=== PATIENT | female | born 1960 | race Caucasian/White ===

== ENCOUNTER 2020-08-07 16:47 | Outpatient (CLI) | payer OTHER, SELFPAY | END 2020-08-07 16:48 | disposition home or self-care (01) | LOC: ANHCOVIDVC 16:47 | PROVIDERS: PCP Family Medicine | DX: Z23 Encounter for immunization (principal) | CPT/HCPCS: 0001A; 91300 ==

== ENCOUNTER 2020-08-28 16:55 | Outpatient (CLI) | payer OTHER, SELFPAY | END 2020-08-28 16:56 | disposition home or self-care (01) | LOC: ANHCOVIDVC 16:55 | PROVIDERS: PCP Family Medicine | DX: Z23 Encounter for immunization (principal) | CPT/HCPCS: 0002A; 91300 ==

== ENCOUNTER → 2021-06-16 07:49 | Outpatient (CLI) | payer BC, SELFPAY ==
--- NOTE | ~2021-06-16 | US_ITS ---
EXAMINATION: US pelvic complete w TV DATE: 06/16/2021 08:23 INDICATION: Noninflammatory disorders of the ovary Comparison:No prior studies for comparison. TECHNIQUE: Multiple transabdominal and endovaginal sonographic images of the pelvis performed. FINDINGS: The uterus measures 6.1 x 3 x 3.6 cm. There is a small uterine fibroid at the fundus measur ing 1.8 x 1.7 x 1.5 cm The endometrial complex measures 4 mm. The ovaries are not visualized. There is no free fluid in the pelvis. There are no abnormal masses seen on either side. IMPRESSION: 1. Small uterine fibroid measuring 1.8 cm maximum dimension. Reviewed, dictated and finalized at location B. PMENT PROCESSOR
== END ==
PROVIDERS: PCP Family Medicine; Visit Provider Family Medicine
DX: N83.8 Other noninflammatory disorders of ovary, fallopian tube and broad ligament (principal); D25.9 Leiomyoma of uterus, unspecified
CPT/HCPCS: 76830; 76856

== ENCOUNTER → 2021-10-15 02:22 | Outpatient (CLI) | payer BC, SELFPAY ==
[2021-10-15 12:22] LABS: SARS-CoV-2 RNA PCR Positive
== END ==
PROVIDERS: PCP Family Medicine; Visit Provider Family Medicine
DX: U07.1 COVID-19 (principal)
CPT/HCPCS: C9803; U0003; U0005

== ENCOUNTER 2021-11-29 13:20 | Emergency (ER) | payer BC, SELFPAY ==
[2021-11-29] VITALS (33 sets, daily range): BP systolic 130–174; BP diastolic 67–98; PULSE 71–110; RESP 12–25; TEMP 36.7; O2SAT 95–100
--- NOTE | ~2021-11-29 | XR_ITS ---
EXAMINATION: XR chest 2V Exam Date/Time: 11/29/2021 14:30 CDT HISTORY: cp, syncope, palpitations, HTN Comparison: 05/23/2018. RESULT: Lines, tubes, and devices: None. Lungs and pleura: Clear. Cardiomediastinal silhouette: Stable. Other: No acute osseous or upper abdominal finding. IMPRESSION: No acute cardiopulmonary process. Reviewed, dictated and finalized at location K.
--- NOTE | 2021-11-29 13:21 | ECG_ITS ---
Measurements Intervals [place] Rate: 108 P: 52 [place]: 163 QRS: 42 QRSD: 77 T: 33 QT: 317 QTc: 426 Interpretive Statements SINUS TACHYCARDIA WITH OCCASIONAL SUPRAVENTRICULAR PREMATURE COMPLEXES SEPTAL MYOCARDIAL INFARCTION , PROBABLY OLD [40+ ms Q WAVE IN V1/V2] COMPARED TO ECG 05/23/2018 16:42:53 HEART RATE IS INCREASED , NO OTHER CHANGE Electronically Signed On 11-29-2021 14:39:22 CDT by Ang Nathan M.D.
[2021-11-29 13:37] LABS: Basophils Absolute Auto 0.1 K/mm3 (0.0-0.1); Basophils Percent Auto 0.5 % (0.2-1.2); Eosinophils Absolute Auto 0.1 K/mm3 (0-0.3); Eosinophils Percent Auto 1.4 % (0-4.4); Hematocrit 43.3 % (37.0-47.0); Hemoglobin 14.1 g/dL (12.0-15.0); Immature Granulocyte Absolute 0.03 K/mm3 (0.00-0.031); Immature Granulocyte Percent A 0.3 % (0-0.5); Lymphocytes Absolute Auto 3.95 K/mm3 (0.9-3.2); Lymphocytes Percent Auto 43.3 % (18.3-44.2); Mean Corpuscular HGB Conc 32.6 g/dl (32-36); Mean Corpuscular Hemoglobin 28.4 pg (26-34); Mean Corpuscular Volume 87.1 fl (80-100); Mean Platelet Volume 9.1 fl (7.4-10.4); Monocytes Absolute Auto 0.6 K/mm3 (0.1-0.6); Monocytes Percent Auto 6.4 % (2.6-8.5); Neutrophils Absolute Auto 4.4 K/mm3 (1.3-6.7); Neutrophils Percent Auto 48.1 % (45.5-73.1); Platelet Count Result 315 k/mm3 (150-375); Red Blood Count 4.97 M/mm3 (4.2-5.4); White Blood Count 9.1 K/mm3 (4.5-10.0)
[2021-11-29 13:47] LABS: Alanine Aminotransferase 19 U/L (6-35); Alkaline Phosphatase 120 U/L (38-126); Anion Gap 12 mmol/L (8-16); Aspartate Amino Transferase 26 U/L (14-36); Bilirubin,Total 0.4 mg/dL (0.2-1.3); Blood Urea Nitrogen 13 mg/dL (7-17); Calcium 9.2 mg/dL (8.4-10.2); Carbon Dioxide 25 mmol/L (22-30); Chloride 104 mmol/L (98-107); Estimated Glomerular Filt Rate > 60; Glucose 134 mg/dL (65-110); Lipase 88 U/L (23-300); Sodium 141 mmol/L (137-145)
[2021-11-29 13:55] LABS: INR 1.1
[2021-11-29 13:56] LABS: Partial Thromboplastin Time 33.2 SECONDS (22.3-36.8)
[2021-11-29 13:58] LABS: Troponin I < 0.012 ng/mL (0.000-0.034)
--- NOTE | 2021-11-29 15:02 | ED.CHESTPAIN ---
HPI - Chest Pain General Chief Complaint: Chest Pain Stated Complaint: syncope? Time Seen by Provider: 11/29/21 14:49 History of Present Illness HPI narrative: 60 year old female here for evaluation of lightheadedness earlier today. Patient states she was standing while at work when she started to feel lightheaded, feel nauseous, and everything started to go black . She did not pass out or lose consciousness. States that she sat down while she was at work and felt improved. She developed some left arm pain shortly afterwards, that feels like a squeezing in her bicep muscle. She has not had a sensation like this in the past. Denies any chest pain, shortness of breath, fevers, chills, abdominal pain, dysuria, urgency or frequency. Had abnormal stress test in may 2018 followed by normal heart cath. Related Data Allergies Allergy/AdvReac Type Severity Reaction Status Date / Time ibuprofen Allergy Unknown Skin Verified 08/27/21 15:54 Reaction red dye Allergy Unknown Unknown Verified 08/27/21 15:54 Review of Systems Review of Systems: Gen: Reports lightheadedness, resolved. Eyes: Denies eye pain or visual change ENT: Denies congestion Respiratory: Denies shortness of breath or cough CV: Denies chest pain or palpitations GI: Denies abdominal pain nausea, emesis or diarrhea denies burning, urgency, frequency or hematuria Musculoskeletal: Reports left arm squeezing sensation. Neuro: Denies numbness, tingling, weakness or focal weakness Skin: Denies rash Except as documented, all other systems reviewed and negative PMFSH Family History Family History Father No problems noted. Mother Breast cancer Sibling Cerebrovascular accident Heart attack Sibling Heart attack Grandparent Breast cancer Grandparent Heart attack Grandparent Heart attack Social History Social History Smoking status: Never smoker Alcohol intake: current Exam Narrative: APPEARANCE: Well appearing, no pain in distress, well-nourished. Head: Normocephalic and atraumatic. EYES: PERRLA/EOMI, conjunctivae clear NOSE: No nasal drainage EARS: External ear normal in appearance THROAT: Oropharynx is clear. Mucous membranes are moist. NECK: No carotid bruits. Supple. No adenopathy, no masses. RESPIRATORY: Airway patent, respirations nonlabored. Clear to auscultation bilaterally, no rales, rhonchi, wheezing. CARDIOVASCULAR: Tachycardic. Regular rhythm without murmurs, rubs, or gallops. ABDOMINAL: Normoactive bowel sounds. Soft, nontender, nondistended. No rebound tenderness or guarding. MUSCULOSKELETAL: Extremities are warm and well-perfused. Moves all extremities well. No edema. No muscular or bony tenderness to palpation of LUE. FROM in BUE without pain. NEURO: Normal speech. No focal neurologic deficits. SKIN: Skin is warm and dry. No rashes. PSYCHIATRIC: Normal affect/mood. Course Vital Signs Vital signs: Vital Signs Temperature 98.1 F 11/29/21 13:30 Pulse Rate 110 H 11/29/21 13:30 Respiratory Rate 14 11/29/21 13:30 Blood Pressure 174/98 H 11/29/21 13:30 Pulse Oximetry 100 11/29/21 13:30 Oxygen Delivery Room Air 11/29/21 13:30 Temperature 98.1 F 11/29/21 13:30 Pulse Rate 73 11/29/21 17:55 Respiratory Rate 20 11/29/21 17:55 Blood Pressure 137/67 11/29/21 17:55 Pulse Oximetry 99 11/29/21 17:55 Oxygen Delivery Room Air 11/29/21 13:30 MDM - Chest Pain MDM Narrative Medical decision making narrative: 60 year old female here for evaluation of presyncopal episode earlier today followed by left bicep pain. Here, she was initially tachycardic/hypertensive, which resolved throughout ED stay, vital signs otherwise normal. Heart and lungs clear to auscultation, no cranial nerve abnormalities on exam, no carotid bruits. Orthostats negative. EKG is non-ische
--- NOTE | 2021-11-29 15:11 | PC.NURSE ---
called main lab @ [id number] to add on d [facility] [id number]
[2021-11-29 15:53] LABS: D Dimer 0.39 ug/mL (<0.48)
[2021-11-29 17:11] LABS: Troponin I < 0.012 ng/mL (0.000-0.034)
== END 2021-11-29 17:56 | disposition home or self-care (01) ==
PROVIDERS: Physician Assistant; Emergency Provider Emergency Medicine; PCP Family Medicine
DX: R55 Syncope and collapse (principal); R00.0 Tachycardia, unspecified; R94.31 Abnormal electrocardiogram [ECG] [EKG]
CPT/HCPCS: 36415; 71046; 80053; 83690; 84484; 85025; 85380; 85610; 85730; 93005; 99284

== ENCOUNTER 2022-02-14 11:36 | Outpatient (CLI) | payer BC, SELFPAY | END 2022-02-14 11:37 | disposition home or self-care (01) | LOC: ANHGOSHLAB 11:38 | PROVIDERS: PCP Family Medicine; Visit Provider Family Medicine | DX: R00.0 Tachycardia, unspecified (principal) | CPT/HCPCS: 36415; 84443 ==

== ENCOUNTER 2022-03-07 09:50 | Emergency (ER) | payer BC, SELFPAY ==
--- NOTE | ~2022-03-07 | XR_ITS ---
EXAMINATION: XR chest 2V DATE: 03/07/2022 10:30 INDICATION: Chest pain. Left toe pressure and shooting pain at the left arm. TECHNIQUE: PA and lateral views of the chest were obtained. COMPARISON: Chest radiograph dated 11/29/2021 FINDINGS: The lungs remain clear with no focal airspace opacities, pulmonary edema, pleural effusion or pneumot horax. The cardiomediastinal silhouette is normal. Mild upper thoracic levocurvature. Moderate thorac ic spondylosis. IMPRESSION: 1. No acute cardiopulmonary disease. Reviewed, dictated and finalized at location B. E MANAGER
--- NOTE | 2022-03-07 09:52 | ECG_ITS ---
Measurements Intervals [place] Rate: 80 P: 12 SD: 166 QRS: 48 QRSD: 69 T: 64 QT: 385 QTc: 446 Interpretive Statements SINUS RHYTHM VENTRICULAR PREMATURE COMPLEX CANNOT RULE OUT SEPTAL INFARCT, AGE INDETERMINATE BORDERLINE ST ABNORMALITY- DIFFUSE LEADS BASELINE ARTIFACT- I, III, AVL ABNORMAL ECG COMPARED TO ECG 11/29/2021 13:23:17 SINUS RHYTHM NOW PRESENT Electronically Signed On 03-07-2022 10:16:57 AIR BATTLE MANAGER by Lonnie Gutierrez D.O.
[2022-03-07 10:06] VITALS: BP 154/76; PULSE 73; RESP 18; TEMP 36.6; O2SAT 100
[2022-03-07 10:07] LABS: Basophils Absolute Auto 0.1 K/mm3 (0.0-0.1); Basophils Percent Auto 0.7 % (0.2-1.2); Eosinophils Absolute Auto 0.1 K/mm3 (0-0.3); Eosinophils Percent Auto 1.2 % (0-4.4); Hematocrit 43.4 % (37.0-47.0); Hemoglobin 14.5 g/dL (12.0-15.0); Immature Granulocyte Absolute 0.04 K/mm3 (0.00-0.031); Immature Granulocyte Percent A 0.5 % (0-0.5); Lymphocytes Absolute Auto 3.66 K/mm3 (0.9-3.2); Lymphocytes Percent Auto 42.2 % (18.3-44.2); Mean Corpuscular HGB Conc 33.4 g/dl (32-36); Mean Corpuscular Hemoglobin 28.9 pg (26-34); Mean Corpuscular Volume 86.6 fl (80-100); Mean Platelet Volume 9.3 fl (7.4-10.4); Monocytes Absolute Auto 0.7 K/mm3 (0.1-0.6); Monocytes Percent Auto 8.2 % (2.6-8.5); Neutrophils Absolute Auto 4.1 K/mm3 (1.3-6.7); Neutrophils Percent Auto 47.2 % (45.5-73.1); Platelet Count Result 283 k/mm3 (150-375); Red Blood Count 5.01 M/mm3 (4.2-5.4); Red Cell Distribution Width 12.6 % (11.5-14.5); White Blood Count 8.7 K/mm3 (4.5-10.0)
[2022-03-07 10:17] LABS: INR 1.1
[2022-03-07 10:19] LABS: Alanine Aminotransferase 18 U/L (6-35); Albumin Level 4.7 g/dL (3.5-5.1); Alkaline Phosphatase 114 U/L (38-126); Anion Gap 14 mmol/L (8-16); Aspartate Amino Transferase 23 U/L (14-36); Bilirubin,Total 0.6 mg/dL (0.2-1.3); Blood Urea Nitrogen 15 mg/dL (7-17); Calcium 9.1 mg/dL (8.4-10.2); Carbon Dioxide 25 mmol/L (22-30); Chloride 102 mmol/L (98-107); Estimated CRCL calculation 64 ml/min; Estimated Glomerular Filt Rate > 60; Glucose 108 mg/dL (65-110); Lipase 81 U/L (23-300); Partial Thromboplastin Time 33.2 SECONDS (22.3-36.8); Potassium 3.7 mmol/L (3.4-5.0); Sodium 141 mmol/L (137-145)
[2022-03-07 10:30] LABS: Troponin I < 0.012 ng/mL (0.000-0.034)
[2022-03-07 11:42] VITALS: RESP 23
--- NOTE | 2022-03-07 11:42 | ED.CHESTPAIN ---
HPI - Chest Pain General Chief Complaint: Chest Pain <ONUR Malik Last Filed: 03/07/22 12:40> Stated Complaint: heart racing <ONUR Malik Last Filed: 03/07/22 12:40> Time Seen by Provider: 03/07/22 11:32 <ONUR Malik Last Filed: 03/07/22 12:40> History of Present Illness HPI narrative: Patient is a 61-year-old female with a history of hypertension here for evaluation of a chest squeezing sensation today. Patient states that she was at work when she noticed the sensation in the center of her chest, also pain in the left side of her neck. Patient states that she has seen her PCP and quality rep Dr. Delgado for this issue, has worn an event monitor and is scheduled for an echo at the end of this month. Patient states the pain is identical to previous episodes. Denies syncope, leg swelling, sinus congestion, cough or shortness of breath. She has had a negative cath in 2019. <ONUR Malik Last Filed: 03/07/22 12:40> Related Data Home Medications: Home Medications Medication Instructions Recorded Confirmed esomeprazole magnesium 20 mg 20 mg PO DAILY 02/14/22 capsule,delayed release (Nexium) metoprolol succinate 50 mg capsule 50 mg PO DAILY 02/14/22 sprinkle, ext. release 24 hr <ONUR Malik Last Filed: 03/07/22 12:40> Allergies/Adverse Reactions: Allergies Allergy/AdvReac Type Severity Reaction Status Date / Time diphenhydramine Allergy Intermediate hives Verified 02/14/22 10:52 [From Benadryl] red dye Allergy Unknown Unknown Verified 02/14/22 10:52 <ONUR Malik Last Filed: 03/07/22 12:40> Review of Systems Review of Systems: Gen: Denies fevers or chills Eyes: Denies eye pain or visual change ENT: Denies congestion Respiratory: Denies shortness of breath or cough CV: Reports chest pain. Denies palpitations GI: Denies abdominal pain nausea, emesis or diarrhea denies burning, urgency, frequency or hematuria Musculoskeletal: Denies back pain or muscle pain Neuro: Denies numbness, tingling, weakness or focal weakness Skin: Denies rash Except as documented, all other systems reviewed and negative <Milvia Vee PA-C - Last Filed: 03/07/22 12:40> [facility] Family History Family History: Family History Father No problems noted. Mother Breast cancer Sibling Cerebrovascular accident Heart attack Sibling Heart attack Grandparent Breast cancer Grandparent Heart attack Grandparent Heart attack <Milvia Vee PA-C - Last Filed: 03/07/22 12:40> Social History Social History: Social History Smoking status: Never smoker Alcohol intake: current <Milvia Vee PA-C - Last Filed: 03/07/22 12:40> Exam Narrative: APPEARANCE: Well appearing, no pain in distress, well-nourished. Head: Normocephalic and atraumatic. EYES: PERRLA/EOMI, conjunctivae clear NOSE: No nasal drainage EARS: External ear normal in appearance THROAT: Oropharynx is clear. Mucous membranes are moist. NECK: Supple. No adenopathy, no masses. RESPIRATORY: Airway patent, respirations nonlabored. Clear to auscultation bilaterally, no rales, rhonchi, wheezing. CARDIOVASCULAR: Regular rate and rhythm without murmurs, rubs, or gallops. ABDOMINAL: Normoactive bowel sounds. Soft, nontender, nondistended. No rebound tenderness or guarding. MUSCULOSKELETAL: Extremities are warm and well-perfused. Moves all extremities well. No edema. NEURO: Normal speech. No focal neurologic deficits. SKIN: Skin is warm and dry. No rashes. PSYCHIATRIC: Normal affect/mood. <Milvia Vee PA-C - Last Filed: 03/07/22 12:40> Course FOREST TECHNOLOGY PROFESSOR/PA Physician Supervision For this encounter, I have reviewed the PA documentation, treatment plan
[2022-03-07 11:44] VITALS: BP 135/77; PULSE 59; RESP 14; O2SAT 100
[2022-03-07 12:12] LABS: D Dimer 0.33 ug/mL (<0.48)
== END 2022-03-07 13:06 | disposition home or self-care (01) ==
PROVIDERS: Physician Assistant; Emergency Provider Emergency Medicine; PCP Family Medicine
DX: R07.89 Other chest pain (principal); I10 Essential (primary) hypertension; I49.3 Ventricular premature depolarization; R94.31 Abnormal electrocardiogram [ECG] [EKG]
CPT/HCPCS: 36415; 71046; 80053; 83690; 84484; 85025; 85380; 85610; 85730; 93005; 99284

== ENCOUNTER → 2022-08-25 11:37 | Outpatient (CLI) | payer BC, SELFPAY ==
--- NOTE | ~2022-08-25 | US_ITS ---
EXAMINATION: US renal BI DATE: 08/25/2022 12:00 INDICATION: Left renal cyst and hematuria TECHNIQUE: Multiple ultrasound grayscale images of the kidneys were obtained. COMPARISON: CT dated 08/12/2004 FINDINGS: The right kidney measures 9.7 x 3.8 x 4.6 cm. The left kidney measures 10.8 x 5.6 x 5.5 cm. The kidne ys demonstrate normal echogenicity. There is no hydronephrosis in either kidney. No stones identifie d. The bladder is normal. IMPRESSION: 1. Normal kidneys without hydronephrosis. Reviewed, dictated and finalized at location L.
== END ==
PROVIDERS: PCP Family Medicine; Visit Provider Family Medicine
DX: N28.1 Cyst of kidney, acquired (principal); R31.9 Hematuria, unspecified
CPT/HCPCS: 76775

== ENCOUNTER → 2022-10-13 08:20 | Outpatient (CLI) | payer BC, SELFPAY ==
--- NOTE | ~2022-10-13 | MMUS_ITS ---
EXAMINATION: MM diagnostic edd BI w jane, US breast BI complete HISTORY: Left breast pain TECHNIQUE: Full field and spot ML, MLO and CC 3-D tomosynthesis images of both breasts were performed and synthetic 2-D images were generated. CAD analysis was submitted and interpreted. High resolution complete bilateral breast ultrasound examination including all 4 quadrants and subareolar areas was performed. COMPARISON: June 03, 2014 bilateral screening mammogram BREAST PARENCHYMAL COMPOSITION: There are scattered areas of fibroglandular density. FINDINGS: MAMMOGRAPHIC FINDINGS: Mildly nodular fibroglandular stroma in the breasts is noted. Small mass is not excluded. Bilateral b reast ultrasound examination was performed. No architectural distortion, malignant calcifications, skin thickening or retraction of either breast is detected. ULTRASOUND: No suspicious mass or shadowing, cyst or other significant abnormality of either breast is detected. IMPRESSION: 1. No evidence of malignancy 2. Routine annual mammographic screening is recommended BI-RADS Category 1: Negative Reviewed, dictated and finalized at location A. IMPRESSION: 1. No evidence of malignancy 2. Routine annual mammographic screening is recommended BI-RADS Category 1: Negative
== END ==
PROVIDERS: PCP Family Medicine; Visit Provider Family Medicine
DX: Z12.31 Encounter for screening mammogram for malignant neoplasm of breast (principal); N64.4 Mastodynia
CPT/HCPCS: 76641; 77062; 77066; G0279

== ENCOUNTER 2022-12-26 09:43 | Emergency (ER) | payer BC, SELFPAY ==
[2022-12-26 10:12] VITALS: BP 127/88; PULSE 98; RESP 16; TEMP 36.5; O2SAT 100
--- NOTE | 2022-12-26 10:31 | ED.EYEPROB ---
HPI - Eye Problem General Chief complaint: Eye Problems Stated complaint: EYE REDNESS Time Seen by Provider: 12/26/22 10:30 Source: patient Mode of arrival: ambulatory Limitations: no limitations History of Present Illness HPI Narrative: 62-year-old female presented for complaint of redness, drainage, irritation to the right eye since yesterday. States this started with the itching to the eye and she noticed a large amount of yellow drainage throughout the day. States she woke in the middle of the night with her eye matted shut. When she woke this morning with the left eye red and crusted. Denies sick contacts, foreign body, or injury. Denies vision changes, photophobia, headache, dizziness, nausea, fever/chills. MD chief complaint: eye pain Related Data Home Medications Medication Instructions Recorded Confirmed metoprolol succinate 50 mg capsule 50 mg PO DAILY 02/14/22 12/26/22 sprinkle, ext. release 24 hr amlodipine 10 mg tablet 10 mg PO ONCE 06/09/22 12/26/22 Allergies Allergy/AdvReac Type Severity Reaction Status Date / Time diphenhydramine Allergy Intermediate hives Verified 12/26/22 10:04 [From Benadryl] red dye Allergy Unknown Unknown Verified 12/26/22 10:04 Review of Systems Review of Systems: CONSTITUTIONAL: Denies body aches, fever, chills EYES:Endorses drainage, redness and itching to eyes; denies FB sensation, photophobia, visual changes ENT: Denies rhinorrhea, congestion, sore throat, or otalgia. CARDIOVASCULAR: Denies chest pain, palpitations RESPIRATORY: Denies cough or dyspnea. GASTROINTESTINAL: Denies abdominal pain, nausea, vomiting, or diarrhea. SKIN: Denies rash, itching, or wounds. MUSCULOSKELETAL: Denies back pain, joint pain, or myalgia. NEUROLOGIC: Denies headache, numbness, tingling, or weakness. All systems reviewed & are unremarkable except as noted in HPI and below PMFSH Past Medical History Medical History (Updated 12/26/22 @ 10:44 by Louise Hong APRN) Essential (primary) hypertension Family History Family History Father No problems noted. Mother Breast cancer Sibling Cerebrovascular accident Heart attack Sibling Heart attack Grandparent Breast cancer Grandparent Heart attack Grandparent Heart attack Social History Social History Smoking status: Never smoker Alcohol intake: current Lack of Transportation: No Lack of Food: Never True Current Housing: I Have Housing Concerned About Future Housing: No Difficulty Paying Gas/Electric Bills: No Difficulty Paying for Meds: No Currently Unemployed: No Education: High School Diploma/GED Difficulty w/ Childcare or Family Care: No Comments At time of signature, I have reviewed and agree with nursing past medical, surgical, social and family history unless otherwise noted. Please see nursing chart for further information. There is no relevant family history pertinent to the presenting complaint Exam Narrative: GENERAL: Well-appearing HEAD: Normocephalic, atraumatic. EYES: bilateral conjunctival injection R>L. Redness and mild swelling to right periorbital area; yellow drainage, PERRLA, EOMI. Lid eversion shows no FB. No stye. ENT: Mucous membranes pink and moist. No rhinorrhea. TMs normal bilaterally. Throat normal. Uvula midline. CHEST: Clear to auscultation. HEART: Regular rate and rhythm. ABDOMEN: Soft, nontender, nondistended SKIN: Warm, dry, no rash. Normal skin turgor. NEURO: No focal deficits. Alert and oriented x3 PSYCH: Normal affect. Course Course Emergency Course: Patient is aware of diagnosis, understands and agrees to treatment plan. Anticipatory guidance given. Patient agrees to follow-up as directed and is aware of reasons to seek care at the emergency department. Portions of this record may have been
== END 2022-12-26 10:45 | disposition home or self-care (01) ==
PROVIDERS: Emergency Provider Nurse Practitioner Family; PCP Family Medicine
DX: H10.9 Unspecified conjunctivitis (principal); I10 Essential (primary) hypertension
CPT/HCPCS: 99213; G0463

== ENCOUNTER 2023-09-08 11:15 | Outpatient (CLI) | payer BC, SELFPAY | END 2023-09-08 11:16 | PROVIDERS: PCP Family Medicine; Visit Provider Family Medicine | DX: M79.672 Pain in left foot (principal) | CPT/HCPCS: 73630 ==

== ENCOUNTER 2024-03-29 00:57 | Day surgery (SDC) | payer BC, SELFPAY ==
[2024-03-11 14:17] VITALS: BMI 26.1
[2024-03-29 10:33] VITALS: BP 131/81; PULSE 87; RESP 20; TEMP 37; O2SAT 100; BMI 25.6
[2024-03-29] MEDS: LACTATED RINGERS 1,000 ML 150 ML IV CONT (10:42)
--- NOTE | 2024-03-29 11:13 | WPDANESEPPF ---
Anes - Initial Pre Proc Eval Procedure: Operation Date: 03/29/24 11:30 Proposed Procedures p Screening Colonoscopy - Salvador Meyers MD Date/Time: 03/29/24 11:13 Surgeon: Salvador Meyers MD Pre Op Diagnosis: screening colon Patient Data Age: 63 Gender: F Height: 1.68 m Weight: 72 kg Last Vital Signs Temp 98.6 F 03/29/24 10:33 Pulse 87 03/29/24 10:33 Resp 20 03/29/24 10:33 BP 131/81 03/29/24 10:33 Pulse Ox 100 03/29/24 10:33 O2 Del Method Room Air 03/29/24 10:33 Allergies Allergy/AdvReac Type Severity Reaction Status Date / Time lisinopril Allergy Severe cough Verified 03/29/24 10:33 diphenhydramine Allergy Intermediate hives Verified 03/29/24 10:33 [From Benadryl] red dye Allergy Unknown Unknown Verified 03/29/24 10:33 Home Medications Medication Instructions Recorded Confirmed Type metoprolol succinate 50 mg capsule 50 mg PO DAILY 02/14/22 03/29/24 History sprinkle, ext. release 24 hr hydrochlorothiazide 12.5 mg tablet 12.5 mg PO DAILY #90 tabs 01/10/24 03/29/24 Rx pantoprazole 40 mg tablet,delayed 40 mg PO QAM 8 weeks #56 tabs 02/08/24 03/29/24 Rx release hydrocodone 5 mg-acetaminophen 325 1 tablet PO Q6H PRN pain #20 tabs 03/07/24 03/29/24 Rx mg tablet Vitamin D3 1 tablet PO DAILY 03/11/24 03/29/24 History Patient hx anesthesia problems: none Family hx anesthesia problems: none Results Review: All pre-operative results and documents have been reviewed as part of the pre-operative evaluation. [facility] Past Medical History Medical History Arthritis of left foot Basal cell carcinoma of skin Bone spur of left foot Essential (primary) hypertension Iliotibial band syndrome, right leg Family History Family History Father No problems noted. Mother Breast cancer Sibling Cerebrovascular accident Heart attack Sibling Heart attack Grandparent Breast cancer Grandparent Heart attack Grandparent Heart attack Social History Social History Smoking status: Never smoker Alcohol intake: never Substance use: never Substance use type: does not use Lack of Transportation: No Lack of Food: Never True Current Housing: I Have Housing Concerned About Future Housing: No Difficulty Paying Gas/Electric Bills: No Difficulty Paying for Meds: No Currently Unemployed: No Education: High School Diploma/GED Difficulty w/ Childcare or Family Care: No Living arrangements: with family Spiritual care concerns: No Anes - Eval Final PreProcedure Day of Procedure 03/29/24 11:13 Patient weight: overweight Heart: regular rate and rhythm Lungs: clear to auscultation Airway: Mallampati scale and special considerations (Many upper caps, none loose. ) Neurological: alert and oriented Last oral intake: >/= 8 hours ASA classification: II Emergent: no Anesthetic plan: proceed Anesthesia type and monitoring: general GIVS and standard monitoring Results Review: All pre-operative results and documents have been reviewed as part of the pre-operative evaluation. Informed Consent: The patient's anesthetic plan and its attendant risks and benefits were discussed with the patient/family/POA. Questions were solicited and answers provided to the satisfaction of the patient/family/POA.
--- NOTE | 2024-03-29 11:35 | PM.IMHP ---
H&P: HPI History of Present Illness Date/Time: 03/29/24 11:35 Chief Complaint: Screening colonoscopy Narrative: This is the patient's second colonoscopy. her 1st colonoscopy was 10 years ago approximately. There are no GI symptoms and there is no family history of colorectal cancer. Review of Systems Review of Systems: All systems reviewed & are unremarkable except as noted in HPI and below PMFSH Past Medical History Medical History Arthritis of left foot Basal cell carcinoma of skin Bone spur of left foot Essential (primary) hypertension Iliotibial band syndrome, right leg Family History Family History Father No problems noted. Mother Breast cancer Sibling Cerebrovascular accident Heart attack Sibling Heart attack Grandparent Breast cancer Grandparent Heart attack Grandparent Heart attack Social History Social History Smoking status: Never smoker Alcohol intake: never Substance use: never Substance use type: does not use Lack of Transportation: No Lack of Food: Never True Current Housing: I Have Housing Concerned About Future Housing: No Difficulty Paying Gas/Electric Bills: No Difficulty Paying for Meds: No Currently Unemployed: No Education: High School Diploma/GED Difficulty w/ Childcare or Family Care: No Living arrangements: with family Spiritual care concerns: No Meds Home Medications and Allergies Home Medications Medication Instructions Recorded Confirmed Type metoprolol succinate 50 mg capsule 50 mg PO DAILY 02/14/22 03/29/24 History sprinkle, ext. release 24 hr hydrochlorothiazide 12.5 mg tablet 12.5 mg PO DAILY #90 tabs 01/10/24 03/29/24 Rx pantoprazole 40 mg tablet,delayed 40 mg PO QAM 8 weeks #56 tabs 02/08/24 03/29/24 Rx release hydrocodone 5 mg-acetaminophen 325 1 tablet PO Q6H PRN pain #20 tabs 03/07/24 03/29/24 Rx mg tablet Vitamin D3 1 tablet PO DAILY 03/11/24 03/29/24 History Allergies Allergy/AdvReac Type Severity Reaction Status Date / Time lisinopril Allergy Severe cough Verified 03/29/24 10:33 diphenhydramine Allergy Intermediate hives Verified 03/29/24 10:33 [From Benadryl] red dye Allergy Unknown Unknown Verified 03/29/24 10:33 Vital Signs Vital Signs - 24 hr 03/29/24 10:33 Temperature 98.6 F Pulse Rate 87 Respiratory Rate 20 Blood Pressure 131/81 Pulse Oximetry 100 Oxygen Delivery Room Air Exam Const: General: cooperative and healthy appearing Resp: Effort & Inspection: normal respiratory effort and able to speak in complete sentences Auscultation: clear to auscultation bilaterally Cardio: Rate: regular rate Rhythm: regular rhythm GI: Inspection: normal to inspection GI Palp: No No hepatosplenomegaly present Auscultation: normal bowel sounds Rectal Exam: deferred Skin: General skin exam: normal color Psych: Appearance: grossly normal Mental Status: mental status grossly normal Assessment and Plan Assessment and plan (1) Colon cancer screening: Code(s): Z12.11 - Encounter for screening for malignant neoplasm of colon Status: Acute Assessment and Plan: The patient is deemed a good candidate for the procedure. Consent signed. Will proceed.
[2024-03-29 12:03] VITALS: BP 120/72; PULSE 71; RESP 17; O2SAT 96
[2024-03-29 12:13] VITALS: BP 114/69; PULSE 66; RESP 16; O2SAT 98
[2024-03-29 12:23] VITALS: BP 113/68; PULSE 66; RESP 16; O2SAT 99
== END 2024-03-29 12:34 | disposition home or self-care (01) ==
PROVIDERS: PCP Family Medicine; Referring Provider Student in an Organized Health Care Education/Training Program; Visit Provider Internal Medicine Gastroenterology
PROC: 0DJD8ZZ Inspection of Lower Intestinal Tract, Via Natural or Artificial Opening Endoscopic (ICD-10-PCS; CPT 45378; principal; 2024-03-29 11:30)
DX: Z12.11 Encounter for screening for malignant neoplasm of colon (principal); I10 Essential (primary) hypertension; M19.072 Primary osteoarthritis, left ankle and foot; M76.31 Iliotibial band syndrome, right leg; Z79.891 Long term (current) use of opiate analgesic; Z85.828 Personal history of other malignant neoplasm of skin; Z80.3 Family history of malignant neoplasm of breast; Z82.49 Family history of ischemic heart disease and other diseases of the circulatory system
CPT/HCPCS: 45378; J2704; J7120

== ENCOUNTER 2025-01-24 15:51 | Outpatient (CLI) | payer MEDICARE, SELFPAY ==
--- NOTE | ~2025-01-24 | MM_ITS ---
EXAMINATION: MM screening edd BI w jane HISTORY: Screening TECHNIQUE: Craniocaudal and mediolateral oblique 3-D tomosynthesis images were obtained and synthetic 2-D images were generated. CAD analysis was submitted and interpreted. COMPARISON: Comparison to multiple prior studies sequentially, with oldest reviewed study dated , 06/19/2008 BREAST PARENCHYMAL COMPOSITION: There are scattered areas of fibroglandular density. FINDINGS: There is no evidence of suspicious mass, calcification, or architectural distortion to suggest malignancy in either breast. IMPRESSION: 1. No mammographic evidence of malignancy. 2. Recommend routine screening mammography in one year. BI-RADS Category 1: Negative Reviewed, dictated and finalized at location B.
== END 2025-01-24 15:52 | disposition home or self-care (01) ==
LOC: MICIMG 15:52
PROVIDERS: PCP Family Medicine; Visit Provider Family Medicine
DX: Z12.31 Encounter for screening mammogram for malignant neoplasm of breast (principal)
CPT/HCPCS: 77063; 77067